=== PATIENT | female | born 1970 | race Two or more races ===

== ENCOUNTER 2025-03-15 07:59 | Inpatient (IN) | payer SELFPAY ==
[2025-03-11 16:18] LABS: Hematocrit 41.2 % (36.0-46.0); Hemoglobin 13.9 g/dL (12.2-16.2); Mean Corpuscular Hemoglobin 30.0 pg (28.0-32.0); Mean Corpuscular Volume 89.3 fL (80.0-100.0); Nucleated Red Blood Cells % 0.1 %
[2025-03-11 16:34] LABS: Alanine Aminotransferase 19 U/L (7-40); Albumin 4.0 g/dL (3.2-4.8); Anion Gap 11 (5-15); BUN/Creatinine Ratio 22.2 (10.0-20.0); Blood Urea Nitrogen 20 mg/dL (9-23); Calcium 10.0 mg/dL (8.7-10.4); Carbon Dioxide 28 mmol/L (20-31); Potassium 4.8 mmol/L (3.5-5.1); Total Protein 7.6 g/dL (5.7-8.2)
[2025-03-11 16:35] LABS: Bilirubin, Total 0.6 mg/dL (0.2-1.0); INR 0.99 (0.9-1.15); Partial Thromboplastin Time 26.9 SEC (24.5-34.5); Prothrombin Time 10.5 sec (9.3-11.8)
[2025-03-11 16:38] LABS: Alkaline Phosphatase 197 U/L (46-116); Chloride 97 mmol/L (98-107); Sodium 136 mmol/L (136-145)
[2025-03-11 16:41] LABS: Glucose 416 mg/dL (74-106)
[2025-03-11 16:52] LABS: Urine Protein, UAD 2+ (Negative)
[~2025-03-15] VITALS: Ht 165.1 cm; Wt 60.4 kg
[~2025-03-15 07:59] MED LIST: ATOR-507 PO; CARV3.1240 PO; CHOLCAP4 PO; EMPA1TAB3 PO; FURO1TAB31 PO; HYDR1TAB97 PO; LISI20TA56 PO; METF-372 PO; POTA-220 PO; SPIR25TA8 PO
[2025-03-15] MEDS: InsuLIN REG 1unit/0.01ml Soln (100units/ml) ONE ×3 (10:37→11:13)
[2025-03-15] MEDS: InsuLIN REG 1unit/0.01ml Soln (100units/ml) IV ONE ×2 (10:40→11:15)
[2025-03-15] MEDS: InsuLIN REG 1unit/0.01ml Soln (100units/ml) SC ONE ×2 (10:40→19:06)
[2025-03-15] MEDS: BUPIVACAINE HCL 0.25% P/F 10 ML VIAL ONE (11:00)
[2025-03-15] MEDS ORDERED: MIDAZOLAM HCL 2MG/2ML 2ml VIAL (1mg/ml) ONE (12:39)
[2025-03-15] MEDS ORDERED: HYDROmorphone HCL 2 MG/ML VL/or syr ONE (12:39)
[2025-03-15] MEDS ORDERED: fentaNYL CITRATE 100 MCG/2 ML VL ONE (12:39)
[2025-03-15] MEDS ORDERED: LIDOCAINE 2%HCL (LOCAL ANESTH.) INJ 20ML MDV ONE (12:40)
[2025-03-15] MEDS ORDERED: GLYCOPYRROLATE 0.2 MG/ML 1ML VIAL ONE (12:40)
[2025-03-15] MEDS ORDERED: ONDANSETRON HCL 4 MG/2 ML VIAL ONE (12:40)
[2025-03-15] MEDS ORDERED: KETOROLAC TROMETH 30 MG/ML 1ML VIAL ONE (12:40)
[2025-03-15] MEDS: ceFAZolin 2 GM/D5W50ml 50 ML IV ONE (12:50)
--- NOTE | 2025-03-15 13:11 | DVHOP2 ---
Discharge Orders Discharge Orders DISCHARGE WHEN CRITERIA MET DISCHARGE WHEN CRITERIA MET. Operative Rep- Outpatient Operative Report PRE-OP DIAGNOSIS: Right proximal tibia fracture PRE-OP PAIN LEVEL (0-10): 9 POST-OP DIAGNOSIS: Same POST-OP PAIN LEVEL (0-10): Unclear [place] protocol followed: Yes ESTIMATED BLOOD LOSS: 20 cc PROCEDURE: Right intramedullary nail fixation tibial nail Stress radiographs of the right knee fluoroscopic Stress radiographs of the right tibia fluoroscopic Stress radiographs of the right ankle fluoroscopic SURGEON/HEEL SANDER: Tee Costello NP ANESTHESIA: General ANESTHESIOLOGIST: INFORMED CONSENT: Informed Consent: Discussed all inherent risks, complications, and alternatives treatments with the patient. Patient has agreed to proceed with the procedure. I have reviewed all pre-operative assessments including Labs, EKGs, and radiographic images that has been performed. Patient is an appropriate candidate for the outpatient surgical center procedure. The patient has a proximal tibia fracture this was a proximally 2 weeks out the patient is educated on the risks and benefits of surgical and nonsurgical treatment there was some level of displacement based on the fact the patient has a 2 week tibia fracture there was some alignment on the patient is educated on the fact that the goal will be to stabilize the fractures with the patient can weight bear the patient understands that she can be treated nonoperatively at this time point however the patient would like to be weight-bearing as tolerated to help expedite the portion of the weight-bearing process the patient was educated of the goal will be to stabilize the fracture in the appropriate manner a technique acceptable alignment based on the fact the patient has a proximally 2 weeks out of the patient understood the risks and benefits of surgical and nonsurgical treatment and opted for surgical treatment of the right lower extremity The patient is seen in the preoperative holding of the right lower extremity was marked the patient was brought to operative suite general anesthesia was then induced and also to hospital protocol the right lower extremity was prepped and draped and draped in the standard fashion Ancef was given for infection prophylaxis TXA was given for bleeding prophylaxis incision was made along the superior pole of the patella once it was then done the sleeve was then placed AP and lateral x-ray were then checked for adequate positioning of the guidewire the opening guidewire was then placed with the opening Reamer along the medial aspect of the lateral tibial spine once I was then done the opening Reamer was then placed the ball-tipped guidewire was then placed the nail was then measured in the appropriate manner sequential reaming was then done turned to the reaming for a 10 mm tibial nail with the ortho helix once it was then done 2 proximal interlocks were then placed proximally and 3 2 proximal interlocks were then placed distally. TEE VIDAL MD Mar 15, 2025 13:11
[2025-03-15] MEDS: BUPIVACAINE W/ EPINEPH 0.25% INJ 50ML MDV ONE (13:17)
[2025-03-15 14:09] VITALS: PULSE 82; RESP 9; O2SAT 100
[2025-03-15] MEDS ORDERED: ONDANSETRON HCL 4 MG/2 ML VIAL IV PRN (14:30)
[2025-03-15] MEDS: ACCU-CHEK COMFORT CURVE STRIP VI ONE (14:30)
[2025-03-15] MEDS: ACETAMINOPHEN IV 1000 MG/100ML (10MG/ML) IV ONE (14:30)
[2025-03-15] MEDS ORDERED: HYDROmorphone HCL 2 MG/ML VL/or syr IV PRN (14:30)
[2025-03-15] MEDS ORDERED: MORPHINE SULFATE INJ 2 MG/ml SYRG IV PRN ×2 (15:00→17:15)
[2025-03-15] MEDS ORDERED: NITROGLYCERIN 0.4 MG SL TAB SL PRN (15:00)
--- NOTE | 2025-03-15 15:00 | DVH ---
CLINICAL INDICATION: ORIF RT TIB/FIB TECHNIQUE: 11 radiographic views of the 10 intraoperative images of the right tibia and fibula and 1 dose summary sheet were obtained. Comparison: XY R TIB FIB XRAY on DOS: 03/08/25, XR TIB FIB RT on DOS: 02/23/25 FINDINGS/IMPRESSION: Fluoro time 51.7 seconds Cumulative dose 0.98mGy
--- NOTE | 2025-03-15 15:01 | DVH ---
C-ARM FLUOROSCOPY: PROCEDURE: ORIF right tibia and fibula FLUOROSCOPY TIME: 51.7 Air Kerma: 0.98 mgy FINDINGS: Spot intraoperative C arm radiographs demonstrating ORIF right tibia and fibula. IMPRESSION: 1. Please refer to surgical report for detailed findings.
[2025-03-15] MEDS ORDERED: ACETAMINOPHEN 325 MG TAB PO PRN (17:15)
[2025-03-15] MEDS ORDERED: DEXTROSE (50%) 50ML SYRG IV PRN ×2 (17:15→19:00)
[2025-03-15] MEDS ORDERED: ACCU-CHEK COMFORT CURVE STRIP VI SCH ×2 (17:15→22:00)
[2025-03-15 17:33] VITALS: BP_SYST 130; BP_SYST 154; BP_DIAS 80; BP_DIAS 88; PULSE 87; PULSE 88; RESP 16; RESP 18; TEMP 97.6; TEMP 98.3; O2SAT 95; O2SAT 98
[2025-03-15 17:36] VITALS: BP 146/86; PULSE 81; PULSE 82; RESP 18; RESP 19; TEMP 97.6; O2SAT 96; O2SAT 98
--- NOTE | 2025-03-15 18:55 | DVHINCON2 ---
Date Seen: Mar 15, [address] VIDAL Allergies: Coded Allergies: NO KNOWN ALLERGIES (Unverified , 03/11/25) Home Meds Reported Medications Hydrocodone-Acetaminophen (Hydrocodone/Acetaminophen 5-325 mg) 1 Tab Tab, 1 TAB PO Q6HP, TAB 03/11/25 Spironolactone (Spironolactone) 25 Mg Tab, PO, TAB 03/11/25 Cholecalciferol (D3-50) 50,000 Unit Cap, 44283 UNIT PO Q7D, CAP 03/11/25 Carvedilol (Carvedilol) 3.125 Mg Tab, 3.125 MG PO BID, TAB 03/11/25 Atorvastatin Calcium (Lipitor) 40 Mg Tab, 40 MG PO DAILY, TAB 03/11/25 Potassium Chloride (Klor-Con M20) 20 Meq Tab, 20 MEQ PO DAILY, TAB 03/11/25 Furosemide (Lasix) 40 Mg Tab, 40 MG PO DAILY, TAB 03/11/25 Lisinopril (Lisinopril) 20 Mg Tab, 20 MG PO DAILY, TAB 03/11/25 Empagliflozin (Jardiance) 25 Mg Tab, 25 MG PO DAILY, TAB 03/11/25 Metformin Hydrochloride (Metformin Hcl) 1,000 Mg Tab, 1000 MG PO BID, TAB 03/11/25 Current Medications Current Medications Medications (Trade) Dose Ordered Sig/Zak Route PRN Reason Start Time Stop Time Status Last Admin Ondansetron HCl (Zofran) 4 mg ONCE PRN IV NAUSEA / VOMITING 03/15/25 14:30 03/15/25 14:31 DC Hydromorphone HCl (Dilaudid Injection) 0.25 mg Q10M PRN IV MODERATE PAIN (4-6 PAIN SCALE) 03/15/25 14:30 03/15/25 15:01 DC Nitroglycerin (Ntrostat Sublingual) 0.4 mg Q5MINP PRN SL FOR CHEST PAIN 03/15/25 15:00 Morphine Sulfate 2 mg Q30M PRN IV FOR CHEST PAIN 03/15/25 15:00 Morphine Sulfate 1 mg Q6HP PRN IV SEVERE PAIN (7-10 PAIN SCALE) 03/15/25 17:15 Acetaminophen/ Hydrocodone Bitart ([place] 5/325MG Tab) 1 tab Q6HPRN PRN PO MODERATE PAIN (4-6 PAIN SCALE) 03/15/25 17:15 Acetaminophen (Tylenol Tablet) 650 mg Q4HP PRN PO PAIN SCALE 1-3 OR TEMP>100.4 03/15/25 17:15 Diagnostic Test (Pha) (Accu-Chek Comfort Curve T) 1 strip Q1H 03/15/25 17:15 03/15/25 21:00 Cancel Diagnostic Test (Pha) (Accu-Chek Comfort Curve T) 1 strip ACHS 03/15/25 22:00 Insulin Human Regular (InsuLIN R) ACHS SC 03/15/25 22:00 Dextrose 50 ml UD PRN IV Blood Sugar LESS THAN 60 03/15/25 17:15 Vital Signs Vital Signs Date Time Temp Pulse Resp B/P (MAP) Pulse Ox O2 Delivery O2 Flow Rate FiO2 03/15/25 17:33 97.6 88 16 154/88 (110) 98 97.6 03/15/25 14:09 Nasal Cannula 3.0 03/15/25 14:09 100 Labs/Diagnostic Data Labs Test 03/15/25 14:13 03/11/25 15:30 Range/Units POC Glucose 242 H 70-106 mg/dl White Blood Count 10.3 4.4-10.8 10^3/uL Red Blood Count 4.62 4.0-5.20 10^6/uL Hemoglobin 13.9 12.2-16.2 g/dL Hematocrit 41.2 36.0-46.0 % Mean Corpuscular Volume 89.3 80.0-100.0 fL Mean Corpuscular Hemoglobin 30.0 28.0-32.0 pg Mean Corpuscular Hemoglobin Concent 33.6 32.0-36.0 g/dL Red Cell Distribution Width 13.5 11.8-14.3 % Platelet Count 504 H 140-450 10^3/uL Mean Platelet Volume 9.1 6.9-10.8 fL Neutrophils (%) (Auto) 78.0 37.0-80.0 % Lymphocytes (%) (Auto) 13.9 10.0-50.0 % Monocytes (%) (Auto) 5.6 0.0-12.0 % Eosinophils (%) (Auto) 1.9 0.0-7.0 % Basophils (%) (Auto) 0.6 0.0-2.0 % Neutrophils # (Auto) 8.1 1.6-8.6 10 ^3/uL Lymphocytes # (Auto) 1.4 0.4-5.4 10 ^3/uL Monocytes # (Auto) 0.6 0-1.3 10 ^3/uL Eosinophils # (Auto) 0.2 0-0.8 10 ^3/uL Basophils # (Auto) 0.1 0-0.2 10 ^3/uL Nucleated Red Blood Cells 0.1 % Prothrombin Time 10.5 9.3-11.8 sec Prothrombin Time INR 0.99 0.9-1.15 Activated Partial Thromboplast Time 26.9 24.5-34.5 SEC Urine Color Light-yellow Yellow Urine Clarity Clear Clear Urine pH 7.0 5.0-9.0 Urine Specific [place] 1.032 1.001-1.035 Urine Protein 2+ H Negative Urine Ketones Trace Negative Urine Blood Negative Negative /uL Urine Nitrite Negative Negative Urine Bilirubin Negative Negative Urine Urobilinogen Normal Negative mg/dL Urine Leukocyte Esterase Negative Negative /uL Urine RBC 1 0 - 4 /hpf Urine Microscopic WBC 3 0-5 /HPF Urine Squamous Epithelial Cells Few <5 /hpf Urine Bacteria None seen None Seen /hpf Urine Glucose 4+ H Normal mg/dL Sodium Level 136 136-145 mmol/L Potassium Level 4.8 3.5-5.1 mmol/L Chloride Level 97 L 98-107 mmol/L Carbon Dioxide Level 28 20-31 mmol/L Anion Gap 11 5-15 Blood Urea Nitrogen 20 9-23 mg/dL Creatinine 0.90 0.550-1.02 mg/dL Glomerular Filtration Rate Calc 76 >90 mL/min BUN/Creatinine Ratio 22.2 H 10.0-20.0 Serum Glucose 416 *H 74-106 mg/dL Calcium Level 10.0 8.7-10.4 mg/dL Total Bilirubin 0.6 0.2-1.0 mg/dL Aspartate Amino Transferase (AST) 21 13-40 U/L Alanine Aminotransferase (ALT) 19 7-40 U/L Alkaline Phosphatase 197 H 46-116 U/L Total Protein 7.6 5.7-8.2 g/dL Albumin 4.0 3.2-4.8 g/dL Assessment SEE DICTATED NOTE Plan discussed with: Patient Date of Service: Mar 15, 2025 Billing Provider: KATH HUYNH MD Common Visit Codes: 01539-EQHIHII INP/OBS CARE (HIGH) Secondary Visit Codes: [id number] CARE PLAN 30 MINUTES KATH HUYNH MD Mar 15, 2025 18:55
--- NOTE | 2025-03-15 19:11 | DVHINCON2 ---
DATE OF CONSULTATION: 03/15/2025 INTERNAL MEDICINE CONSULT HISTORY OF PRESENT ILLNESS: The patient is a 55-year-old lady who was admitted after she underwent surgery for a tibial fracture and was noted to have elevated blood sugars. The patient denies any pain. No chest pain. No shortness of breath. No nausea or vomiting. REVIEW OF SYSTEMS: Review of rest of the systems otherwise currently negative. PAST MEDICAL HISTORY: Significant for congestive heart failure, diabetes mellitus, hypertension, and hyperlipidemia. 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 MEDICATIONS: She takes Aldactone, potassium, metformin, lisinopril, [place], Lasix, Coreg, Lipitor, Jardiance. ALLERGIES: No known drug allergies. SOCIAL HISTORY: Denies smoking or alcohol. Lives at home with her . FAMILY HISTORY: Negative. PHYSICAL EXAMINATION: GENERAL: The patient is awake, alert. VITAL SIGNS: Temperature of 97.6, pulse 88 per minute, blood pressure 154/88. SHEENT: Unremarkable. NECK: There is no JVD. No pedal edema. LUNGS: Equal bilaterally. No added sounds. CARDIOVASCULAR SYSTEM: S1 and S2 is regular without murmurs. ABDOMEN: Soft. There is no organomegaly. NEUROLOGIC: Nonfocal. MUSCULOSKELETAL: The right leg is currently in a dressing. ASSESSMENT AND PLAN: * Diabetes mellitus, uncontrolled, for which she will be placed on metformin and sliding-scale insulin. * Hypertension. * Hyperlipidemia. * Likely chronic systolic heart failure, for which she will continue on her home medications. * Status post right tibial fracture surgery, for which she will be placed on pain medications. ADVANCED CARE PLANNING: The patient is a full code-Time spent was 18 minutes. MD NIALL Awad/KUN TID: [id number] RECEIPT: [id number] [facility]
[2025-03-15 20:00] VITALS: PULSE 90; RESP 18; O2SAT 100
[2025-03-15 21:00] VITALS: BP 144/81; PULSE 90; RESP 18; TEMP 98.3; O2SAT 100
[2025-03-15] MEDS: ACCU-CHEK COMFORT CURVE STRIP VI SCH (21:25)
[2025-03-15] MEDS: CARVEDILOL 3.125 MG TAB PO SCH (21:25)
[2025-03-15] MEDS: InsuLIN REG 1unit/0.01ml Soln (100units/ml) SC SCH (21:29)
[2025-03-15] MEDS ORDERED: InsuLIN REG 1unit/0.01ml Soln (100units/ml) SC SCH (22:00)
[2025-03-16 01:00] VITALS: BP 116/68; PULSE 86; RESP 17; TEMP 98.2; O2SAT 99
[2025-03-16 05:00] VITALS: BP 114/69; PULSE 80; RESP 17; TEMP 98.2; O2SAT 98
[2025-03-16] MEDS: HYDROcodone-ACET 5/325MG TAB PO PRN (05:33)
[2025-03-16 06:17] LABS: Hemoglobin 13.2 g/dL (12.2-16.2)
[2025-03-16 06:19] LABS: Hematocrit 39.0 % (36.0-46.0); Mean Corpuscular Hemoglobin 30.1 pg (28.0-32.0); Mean Corpuscular Volume 89.0 fL (80.0-100.0); Nucleated Red Blood Cells % 0.0 %
[2025-03-16 06:46] LABS: Alanine Aminotransferase 32 U/L (7-40); Albumin 3.7 g/dL (3.2-4.8); Anion Gap 12 (5-15); BUN/Creatinine Ratio 35.5 (10.0-20.0); Bilirubin, Total 0.5 mg/dL (0.2-1.0); Calcium 9.7 mg/dL (8.7-10.4); Carbon Dioxide 27 mmol/L (20-31); Chloride 101 mmol/L (98-107); Potassium 4.2 mmol/L (3.5-5.1); Sodium 140 mmol/L (136-145); Total Protein 7.1 g/dL (5.7-8.2)
[2025-03-16 06:51] LABS: Alkaline Phosphatase 211 U/L (46-116); Blood Urea Nitrogen 27 mg/dL (9-23); Glucose 226 mg/dL (74-106)
[2025-03-16] MEDS: InsuLIN REG 1unit/0.01ml Soln (100units/ml) SC SCH (07:07)
[2025-03-16] MEDS: SPIRONOLACTONE 25 MG TAB PO SCH (07:53)
[2025-03-16 08:00] VITALS: RESP 18
--- NOTE | 2025-03-16 08:00 | DVHPN2 ---
Progress Note Date Seen: Mar 16, 2025 Medical Necessity Reason Pt with a Central, PICC or Fol: No Subjective Patient reports: No new complaints Objective vital signs Vital Sign Date Time Temp Pulse Resp B/P (MAP) Pulse Ox O2 Delivery O2 Flow Rate FiO2 03/16/25 05:00 98.2 80 17 114/69 (84) 98 98.2 03/15/25 20:00 Room Air* 0 21 Total Intake and Output 03/15/25 03/15/25 03/16/25 15:00 23:00 07:00 Intake Total 120 ml 600 ml Balance 120 ml 600 ml medications Current Medications Medications Dose Ordered Sig/Zak Route Start Time Stop Time Status Last Admin Dose Admin Nitroglycerin 0.4 mg Q5MINP PRN SL 03/15/25 15:00 Morphine Sulfate 2 mg Q30M PRN IV 03/15/25 15:00 Morphine Sulfate 1 mg Q6HP PRN IV 03/15/25 17:15 Acetaminophen/ Hydrocodone Bitart 1 tab Q6HPRN PRN PO 03/15/25 17:15 03/16/25 05:33 1 TAB Acetaminophen 650 mg Q4HP PRN PO 03/15/25 17:15 Diagnostic Test (Pha) 1 strip Q1H 03/15/25 17:15 03/15/25 21:00 Cancel Diagnostic Test (Pha) 1 strip ACHS 03/15/25 22:00 03/16/25 07:07 1 STRIP Insulin Human Regular HS SC 03/15/25 22:00 03/15/25 21:29 8 UNITS Insulin Human Regular AC SC 03/16/25 07:00 03/16/25 07:07 6 UNITS Dextrose 50 ml UD PRN IV 03/15/25 19:00 Lisinopril 20 mg DAILY PO 03/16/25 10:00 Carvedilol 3.125 mg Q12HR PO 03/15/25 22:00 03/15/25 21:25 3.125 MG Spironolactone 25 mg DAILY PO 03/16/25 10:00 03/16/25 07:53 25 MG Furosemide 40 mg DAILY PO 03/16/25 10:00 Potassium Chloride 20 meq DAILY PO 03/16/25 10:00 Metformin HCl 1,000 mg BIDWM PO 03/16/25 08:00 Empaglifozin 10 mg DAILY PO 03/16/25 10:00 Examination: GENERAL:Normal, MSK:Abnormal laboratory and microbiology Laboratory Tests 03/16/25 05:32 Test 03/16/25 05:32 Range/Units Serum Glucose 226 H 74-106 mg/dL Problem List/Assessment/Plan Problem List/Assessment/Plan 55 year old female who is s/p ORIF right tibia POD 1 1. Pain control 2. WBAT RLE 3. cam boot to be dispensed to patient for stability by Maximiliano from ortho clinic 4. Prescriptions for abx and pain medication to be sent by [facility]o PENNY Vital 5. clear for discharge once medically stable 6. patient to follow up at [facility] ortho clinic in 2 weeks Plan discussed with: Patient Date of Service: Mar 16, 2025 Billing Provider: FLASH HUNTER MD Common Visit Codes: NOT BILLABLE DAVID ALANIZ NP Mar 16, 2025 08:00
[2025-03-16 08:47] VITALS: BP 111/66; PULSE 81; RESP 18; TEMP 98; O2SAT 99
[2025-03-16] MEDS: LISINOPRIL 20 MG TAB PO SCH (10:00)
[2025-03-16] MEDS: EMPAGLIFLOZIN 10 MG TAB PO SCH (10:36)
[2025-03-16] MEDS: POTASSIUM CHL 20 Meq TABLET PO SCH (10:36)
[2025-03-16] MEDS: FUROSEMIDE 40 MG TAB PO SCH (10:37)
--- NOTE | 2025-03-16 11:05 | DVHDS2 ---
Discharge Summary Date of Admission Mar 15, 2025 at 14:54 Date of Discharge: Mar 16, 2025 Labs/Diagnostic Data: Laboratory Results Test 03/16/25 05:32 03/15/25 21:22 03/11/25 15:30 White Blood Count 15.1 10^3/uL (4.4-10.8) Red Blood Count 4.38 10^6/uL (4.0-5.20) Hemoglobin 13.2 g/dL (12.2-16.2) Hematocrit 39.0 % (36.0-46.0) Mean Corpuscular Volume 89.0 fL (80.0-100.0) Mean Corpuscular Hemoglobin 30.1 pg (28.0-32.0) Mean Corpuscular Hemoglobin Concent 33.8 g/dL (32.0-36.0) Red Cell Distribution Width 13.4 % (11.8-14.3) Platelet Count 520 10^3/uL (140-450) Mean Platelet Volume 8.9 fL (6.9-10.8) Neutrophils (%) (Auto) 86.4 % (37.0-80.0) Lymphocytes (%) (Auto) 8.8 % (10.0-50.0) Monocytes (%) (Auto) 4.4 % (0.0-12.0) Eosinophils (%) (Auto) 0.2 % (0.0-7.0) Basophils (%) (Auto) 0.2 % (0.0-2.0) Neutrophils # (Auto) 13.1 10 ^3/uL (1.6-8.6) Lymphocytes # (Auto) 1.3 10 ^3/uL (0.4-5.4) Monocytes # (Auto) 0.7 10 ^3/uL (0-1.3) Eosinophils # (Auto) 0 10 ^3/uL (0-0.8) Basophils # (Auto) 0 10 ^3/uL (0-0.2) Nucleated Red Blood Cells 0.0 % Sodium Level 140 mmol/L (136-145) Potassium Level 4.2 mmol/L (3.5-5.1) Chloride Level 101 mmol/L (98-107) Carbon Dioxide Level 27 mmol/L (20-31) Anion Gap 12 (5-15) Blood Urea Nitrogen 27 mg/dL (9-23) Creatinine 0.76 mg/dL (0.550-1.02) Glomerular Filtration Rate Calc 94 mL/min (>90) BUN/Creatinine Ratio 35.5 (10.0-20.0) Serum Glucose 226 mg/dL (74-106) Hemoglobin A1c 13.8 % A1C (<5.7) Calcium Level 9.7 mg/dL (8.7-10.4) Total Bilirubin 0.5 mg/dL (0.2-1.0) Aspartate Amino Transferase (AST) 44 U/L (13-40) Alanine Aminotransferase (ALT) 32 U/L (7-40) Alkaline Phosphatase 211 U/L (46-116) Total Protein 7.1 g/dL (5.7-8.2) Albumin 3.7 g/dL (3.2-4.8) POC Glucose 335 mg/dl (70-106) Prothrombin Time 10.5 sec (9.3-11.8) Prothrombin Time INR 0.99 (0.9-1.15) Activated Partial Thromboplast Time 26.9 SEC (24.5-34.5) Urine Color Light-yellow (Yellow) Urine Clarity Clear (Clear) Urine pH 7.0 (5.0-9.0) Urine Specific [place] 1.032 (1.001-1.035) Urine Protein 2+ (Negative) Urine Ketones Trace (Negative) Urine Blood Negative /uL (Negative) Urine Nitrite Negative (Negative) Urine Bilirubin Negative (Negative) Urine Urobilinogen Normal mg/dL (Negative) Urine Leukocyte Esterase Negative /uL (Negative) Urine RBC 1 /hpf (0 - 4) Urine Microscopic WBC 3 /HPF (0-5) Urine Squamous Epithelial Cells Few /hpf (<5) Urine Bacteria None seen /hpf (None Seen) Urine Glucose 4+ mg/dL (Normal) Other Laboratory Tests 03/16/25 05:32 Brief Hx & Hospital Course: see dictated note Condition at Discharge: Fair Final Diagnosis/Problems List right tibial fracture Discharge Disposition: Home Discharge Instruct/Medications Diet: Consistent carbohydrate Activity: No Restrictions, As Tolerated Follow Up/Referral: fu wiht pcp/ortho Medications: resume home meds rest per ortho Scheduled Atorvastatin Calcium (Lipitor), 40 MG PO DAILY, (Reported) Carvedilol (Carvedilol), 3.125 MG PO BID, (Reported) Cholecalciferol (D3-50), 50,000 UNIT PO Q7D, (Reported) Empagliflozin (Jardiance), 25 MG PO DAILY, (Reported) Furosemide (Lasix), 40 MG PO DAILY, (Reported) Hydrocodone-Acetaminophen (Hydrocodone/Acetaminophen 5-325 mg), 1 TAB PO Q6HP, (Reported) Lisinopril (Lisinopril), 20 MG PO DAILY, (Reported) Metformin Hydrochloride (Metformin Hcl), 1,000 MG PO BID, (Reported) Potassium Chloride (Klor-Con M20), 20 MEQ PO DAILY, (Reported) Miscellaneous Medications Spironolactone (Spironolactone), Unknown Dose PO, (Reported) Discharge Statement: "Patient was advised to return to the ER or call 911 if any headaches, dizziness, shortness of breath, chest pain, abdominal pain, bleeding, fevers, or worsening of medical condition. Patient was counseled about treatment plan, medications, possible side effects, patientverbalized understanding. All questions were answered to the best of my ability. This discharge took greater then 30 minutes in planning, reviewing documentation, counseling the patient, and discussing with other team members." ASSESSMENT ASSESSMENT Assessment right tibial fracture Date of Service: Mar 16, 2025 Billing Provider: KATH HUYNH MD Common Visit Codes: 11365-BHD/OBS DISCH DAY >30min KATH HUYNH MD Mar 16, 2025 11:05
--- NOTE | 2025-03-16 11:14 | DVHDS ---
DATE OF DISCHARGE: 03/16/2025 HISTORY OF PRESENT ILLNESS: The patient is a 55-year-old lady who was admitted after she underwent surgery on the right tibia but was found to have elevated blood sugars. She also has history of hypertension, hyperlipidemia, and chronic systolic heart failure. HOSPITAL COURSE: The patient's A1c was elevated at 13.8. The patient was put on metformin, Jardiance, and insulin. The patient's primary has called a prescription in for insulin in addition to her usual regimen. The patient is to fiber picker that prescription today. She will be discharged home to resume her home medications and will be on medications as per Orthopedics. She will follow up with her primary and Orthopedics. FINAL DIAGNOSES: * Uncontrolled diabetes mellitus. * Hypertension. * Hyperlipidemia. * Chronic systolic heart failure. * Status post right tibial fracture surgery. Time spent in discharge planning and review of plan with the patient and nursing and Orthopedics was 39 minutes. MD NIALL Awad/DARIAN TID: [id number] RECEIPT: [id number]
[2025-03-16 13:00] VITALS: BP 124/77; PULSE 79; RESP 18; TEMP 98.3; O2SAT 100
[2025-03-16] MEDS ORDERED: KETAMINE 50mg/ML 1ml syringe IM ONE (13:06)
[2025-03-16 15:05] VITALS: BP 111/66; PULSE 90; RESP 17
== END 2025-03-16 17:55 | disposition home or self-care (01) | DRG 493 ==
LOC: SUR 07:59 → OVERFLOW 14:54 → WEST WING 15:39
PROVIDERS: ADMIT Internal Medicine; ATTEND Internal Medicine
PROC: 0QSG36Z Reposition Right Tibia with Intramedullary Internal Fixation Device, Percutaneous Approach (ICD-10-PCS; principal; 2025-03-15 12:49)
DX: S82.291A Other fracture of shaft of right tibia, initial encounter for closed fracture (principal); I50.22 Chronic systolic (congestive) heart failure; I11.0 Hypertensive heart disease with heart failure; E11.65 Type 2 diabetes mellitus with hyperglycemia; E78.5 Hyperlipidemia, unspecified; Z79.84 Long term (current) use of oral hypoglycemic drugs; Z79.4 Long term (current) use of insulin
CPT/HCPCS: 36415; 73590; 76000; 80053; 81001; 82962; 83036; 85025; 85610; 85730; G0378; J1815; J1885; J2250; J2405; J3490